=== PATIENT | female | born 1985 | race Caucasian/White ===

== ENCOUNTER → 2017-11-05 13:38 | Outpatient (CLI) | payer SELFPAY ==
--- NOTE | 2017-11-05 13:50 | VDUE_ITS ---
Reason For Study: RUE pain Right Proximal Right jugular vein is spontaneous, widely patent, phasic, with no intraluminal echogenicity noted. Right subclavian vein is spontaneous, widely patent, phasic, with no intraluminal echogenicity noted. Right Lower Arm Right radial vein is compressible. Right ulnar vein is compressible. Right Arm Right axillary vein is spontaneous, patent, phasic, competent, compressible and demonstrates augmentation. Right brachial vein is compressible. Right cephalic vein is compressible. Right basilic vein is compressible. < Interpretation Summary Deep veins of the right upper extremity are patent and compressible segmentally. There is no evidence of deep vein thrombosis. The superficial veins of the right upper extremity, the basilic and cephalic veins, are patent and compressible. There is no evidence of right upper extremity superficial thrombophlebitis involving the veins imaged. Ordering Physician: Ashley Lambert Referring Physician: Ashley Lambert Performed By: Chelle Talamantes RVT
== END ==
PROVIDERS: Visit Provider Physician Assistant
DX: M79.601 Pain in right arm (principal); Z86.718 Personal history of other venous thrombosis and embolism
CPT/HCPCS: 93971